=== PATIENT | female | born 1985 | race Caucasian/White ===

== ENCOUNTER 2016-07-11 06:59 | Emergency (ER) | payer OTHER ==
[~2016-07-11] VITALS: Ht 160 cm; Wt 53.0 kg
[~2016-07-11 06:59] MED LIST: ADVIL200 MG PO; AMOXICILLIN875 MG PO; ATARAX,VISTARIL50 MG PO; AUGMENTIN875 MG PO; AVONEX30 MICROGR IM; CEFTIN500 MG PO; CELEXA20 MG PO; CIPRO500 MG PO; CLEOCIN300 MG PO; FLEXERIL10 MG PO; FLONASE16 G1; Ferrous Fumarate PO; GILENYA0.5 MG; IBUPROFEN800 MG PO; KEFLEX500 MG PO; LIDOCAINE20 MG/1 M5 PO; METHADONE PO; MOTRIN800 MG PO; NAPROSYN500 MG PO; NEURONTIN300 MG PO; NO HOME MEDS; NOHOMEMEDS; NORCO 5/3251 TABLET PO; OXYCODONE HCL5 MG PO; PEN-VEE K,VEET500 MG PO; RISPERDAL1 MG PO; SUBOXONE 8 M1 TABLET; ULTRAM50 MG PO; ZYRTEC10 M2
[2016-07-11 07:01] VITALS: BP 115/59
[2016-07-11] MEDS ORDERED: GILENYA0.5 MG PO (07:08)
[2016-07-11] MEDS ORDERED: CLINDAMYCIN HC300 MG PO (07:33)
== END 2016-07-11 07:46 | disposition home or self-care (01) ==
LOC: EME 06:59
DX: K04.7 Periapical abscess without sinus (principal)
CPT/HCPCS: 99281; 99284

== ENCOUNTER 2017-03-17 16:27 | Emergency (ER) | payer OTHER ==
[~2017-03-17] VITALS: Ht 160 cm; Wt 52.5 kg
[~2017-03-17 16:27] MED LIST changes: +CLINDAMYCIN HC300 MG PO; +GILENYA0.5 MG PO
[2017-03-17] MEDS ORDERED: ZOLOFT50 MG PO (18:29)
[2017-03-17] MEDS ORDERED: BACTRIM,SEPT1 TABLET PO (18:45)
[2017-03-17] MEDS ORDERED: KEFLEX500 MG PO (18:45)
[2017-03-17 19:33] VITALS: BP 101/69
== END 2017-03-17 19:34 | disposition home or self-care (01) ==
LOC: EME 16:27
PROC: 0H98XZZ Drainage of Buttock Skin, External Approach (ICD-10-PCS; principal; 2017-03-17)
DX: L02.31 Cutaneous abscess of buttock (principal); F17.200 Nicotine dependence, unspecified, uncomplicated
CPT/HCPCS: 99281; 99284

== ENCOUNTER 2017-10-14 12:42 | Inpatient (IN) | payer OTHER ==
[~2017-10-14] VITALS: Ht 160 cm; Wt 47.2 kg
[~2017-10-14 12:42] MED LIST changes: +BACTRIM,SEPT1 TABLET PO; +ZOLOFT50 MG PO
[2017-10-14 14:43] LABS: BASOPHIL (%) 0.5 % (0-1); EOSINOPHIL (%) 2.7 % (0-5); EOSINOPHIL COUNT 0.2 K/uL (0-0.3); HEMATOCRIT 36.7 % (36.0-46.0); HEMOGLOBIN 12.6 G/DL (11.9-15.5); IMMATURE GRANULOCYTE (%) 0.2 % (0.0-0.7); LYMPHOCYTE (%) 10.2 % (15-42); LYMPHOCYTE COUNT 0.6 K/uL (1.0-2.8); MCH 31.9 PG (29.0-34.0); MCHC 34.3 G/DL (30.0-36.0); MCV 92.9 FL (83-99); MONOCYTE (%) 6.8 % (3-12); MONOCYTE COUNT 0.4 K/uL (0-0.8); NEUTROPHIL (%) 79.6 % (45-76); NEUTROPHIL COUNT 4.7 K/uL (1.8-6.4); PLATELET COUNT 256 K/uL (156-360); RBC DIS.WIDTH-CV 12.1 % (11.8-14.6); RBC DIS.WIDTH-SD 42.1 % (39-53); RED BLOOD COUNT 3.95 M/uL (3.80-5.20); WHITE BLOOD COUNT 5.9 K/uL (4.1-10.2)
[2017-10-14 14:57] LABS: CHLORIDE 107 mEq/L (99-109); SODIUM 143 mEq/L (136-147)
[2017-10-14 14:59] LABS: GLUCOSE 97 mg/dL (70-99)
[2017-10-14 15:03] LABS: CREATININE 0.7 mg/dL (0.6-1.3); GFR ESTIMATE (CALCULATED) > 59 mL/min/
[2017-10-14 15:04] LABS: UREA NITROGEN (BUN) 12 mg/dL (9-23)
[2017-10-14 15:12] LABS: QUANTITATIVE HCG < 4.0 MIU/ML
[2017-10-14 15:28] LABS: ERTH.SED.RATE 4 MM/HR (0-20)
[2017-10-14] MEDS ORDERED: TIZANIDINE HCL4 MG PO (17:13)
[2017-10-14] MEDS ORDERED: SERTRALINE HCL50 MG PO (17:14)
[2017-10-14] MEDS ORDERED: LYRICA75 MG PO (17:14)
[2017-10-14] MEDS ORDERED: FLONASE16 G1 BOTH NARES (17:16)
[2017-10-14] MEDS ORDERED: METHADONE H5 MG/5 ML PO (17:17)
[2017-10-14] MEDS ORDERED: VITAMIN D31000 UNI2 PO (17:17)
[2017-10-14 19:36] VITALS: BP 109/70
[2017-10-14 22:24] LABS: APPEARANCE SL.HAZY ((CLEAR)); BILIRUBIN NEGATIVE; BLOOD NEGATIVE; COLOR YELLOW ((YELLOW)); GLUCOSE (STRIP) NEGATIVE; KETONES NEGATIVE; LEUKOCYTES NEGATIVE; NITRITE NEGATIVE; PROTEIN (STRIP) NEGATIVE; SPECIFIC GRAVITY 1.016 (1.000-1.030); UROBILINOGEN 0.2 MG/DL (0.2-1.0)
[2017-10-14 22:31] LABS: BACTERIA NONE SEEN /HPF; EPITHELIAL CELLS 1+ /HPF; MUCUS TRACE /LPF; RED BLOOD CELLS 0-5 /HPF (0-5); UCUL ADDED? NO; WHITE BLOOD CELLS 0-5 /HPF (0-5)
[2017-10-14 22:44] LABS: AMPHETAMINE NEGATIVE (500 ng/mL); BARBITURATES NEGATIVE (200 ng/mL); BENZODIAZEPINES NEGATIVE (150 ng/mL); BUPRENORPHINE NEGATIVE (10 ng/mL); COCAINE NEGATIVE (150 ng/mL); METHADONE PRESUMPTIVE POSITIVE (200 ng/mL); METHAMPHETAMINE NEGATIVE (500 ng/mL); OPIATES (MORPHINE) NEGATIVE (100 ng/mL); OXYCODONE NEGATIVE (100 ng/mL); PHENCYCLIDINE NEGATIVE (25 ng/mL); PROPOXYPHENE NEGATIVE (300 ng/mL); THC CANNABINOIDS PRESUMPTIVE POSITIVE (50 ng/mL); TRICYCLIC ANTIDEPRESSANTS NEGATIVE (300 ng/mL)
[2017-10-15 00:23] VITALS: BP 100/58
[2017-10-15 03:57] VITALS: BP 121/62
[2017-10-15 06:08] LABS: HEMATOCRIT 37.2 % (36.0-46.0); HEMOGLOBIN 12.4 G/DL (11.9-15.5); MCH 31.1 PG (29.0-34.0); MCHC 33.3 G/DL (30.0-36.0); MCV 93.2 FL (83-99); PLATELET COUNT 244 K/uL (156-360); RBC DIS.WIDTH-CV 12.3 % (11.8-14.6); RBC DIS.WIDTH-SD 42.5 % (39-53); RED BLOOD COUNT 3.99 M/uL (3.80-5.20)
[2017-10-15 06:28] LABS: CHLORIDE 112 MEQ/L (99-109); CREATININE 0.5 MG/DL (0.6-1.3); GFR ESTIMATE (CALCULATED) > 59 mL/min/; SODIUM 142 MEQ/L (136-147); UREA NITROGEN (BUN) 10 mg/dL (9-23)
[2017-10-15 06:49] LABS: GLUCOSE 176 mg/dL (70-99); POTASSIUM 5.2 MEQ/L (3.7-5.4)
[2017-10-15 07:17] VITALS: BP 112/61
[2017-10-15 11:02] VITALS: BP 150/71
[2017-10-15 19:52] VITALS: BP 96/51
[2017-10-15 23:32] VITALS: BP 101/55
[2017-10-16 03:22] VITALS: BP 99/62
[2017-10-16 08:01] VITALS: BP 107/65
== END 2017-10-16 11:29 | disposition home or self-care (01) | DRG 59 ==
LOC: EME 12:42 → EDOF 16:37 → 5SOUTH 16:37 → ENRESERV 16:40 → 5SOUTH 17:57
PROVIDERS: Emergency Medicine; Hospitalist
DX: G35 Multiple sclerosis (principal); F11.20 Opioid dependence, uncomplicated; H46.8 Other optic neuritis; B85.0 Pediculosis due to Pediculus humanus capitis; H55.00 Unspecified nystagmus; F17.200 Nicotine dependence, unspecified, uncomplicated; H54.7 Unspecified visual loss
CPT/HCPCS: 70543; 72156; 72157; 80048; 81003; 84702; 84999; 85025; 85027; 85651; J1650; J2060; J2930; J7030; J7040